=== PATIENT | male | born 1970 | race Caucasian/White ===

== ENCOUNTER 2023-12-19 16:43 | Outpatient (REF) | payer OTHER, SELFPAY ==
[2023-12-19 16:03] LABS: HCT 41.9 % (40.0-50.0); HGB 13.5 g/dL (13.5-17.5); MCH 29.2 pg (27.0-33.0); MCHC 32.2 % (32.0-36.0); MCV 91 fL (80-95); Platelet Count 235 10^3/uL (130-400); RBC 4.63 10^6/uL (4.36-5.78); RDW 14.3 % (11.8-14.1); RDW-SD 47.1 fL; WBC 9.04 10^3/uL (4.4-10.8)
[2023-12-19 16:49] LABS: ALT 24 U/L (16-63); AST 11 U/L (15-37); Albumin 3.6 g/dL (3.4-5.0); Anion Gap 10.2 mmol/L (3-11); BUN 25 mg/dL (7-18); Bilirubin, Total 0.5 mg/dL (0.2-1.0); CO2 26.8 mmol/L (21.0-32.0); Calcium 8.8 mg/dL (8.5-10.1); Calculated LDL 50 mg/dL (<100); Chloride 105 mmol/L (98-107); Cholesterol 114 mg/dL (<200); Glucose 105 mg/dL (74-106); HDL Cholesterol 53 mg/dL (40-60); Potassium 4.7 mmol/L (3.5-5.1); Sodium 142 mmol/L (136-145); Total Protein 7.4 g/dL (6.4-8.2); Triglyceride 59 mg/dL (<150)
[2023-12-19 17:15] LABS: Alkaline Phosphatase 65 U/L (46-116)
[2023-12-19 17:21] LABS: Hemoglobin A1C 6.6 % (<5.7)
[2023-12-19 23:12] LABS: PSA, Screening 0.3 ng/mL (<=3.5)
== END 2023-12-19 16:44 | disposition home or self-care (01) ==
LOC: NCHCN 16:43
PROVIDERS: Visit Provider Physician Assistant
DX: I10 Essential (primary) hypertension (principal); Z13.1 Encounter for screening for diabetes mellitus; Z12.5 Encounter for screening for malignant neoplasm of prostate
CPT/HCPCS: 80053; 80061; 84153; 85027; 83036

== ENCOUNTER 2024-01-13 18:03 | Outpatient (REF) | payer OTHER, SELFPAY | END 2024-01-13 18:04 | disposition home or self-care (01) | LOC: LBN 18:03 | PROVIDERS: Visit Provider Physician Assistant | DX: L02.212 Cutaneous abscess of back [any part, except buttock and flank] (principal) | CPT/HCPCS: 87070; 87205 ==

== ENCOUNTER 2024-06-07 21:27 | Emergency (ER) | payer OTHER, SELFPAY ==
[2024-06-07 21:28] VITALS: BP 125/58; PULSE 92; RESP 16; TEMP 36.6; O2SAT 98
[2024-06-07] MEDS: Lidocaine 2% Pres-Free W/EPI 1/200,000 20 ML VIAL (22:34)
[2024-06-07] MEDS: Doxycycline Hyclate 100 MG CAP PO (22:34)
--- NOTE | 2024-06-07 22:35 | ED.GENADUL_ITS ---
Discharge Plan Disposition Patient Disposition: Home Condition: Good Discharge Details Clinical Impression: Abscess ED Provider: Deepthi Hunt Home Meds and New Rx's Prescriptions: New doxycycline hyclate 100 mg capsule 100 mg PO BID Qty: 13 0RF No Action Eliquis 5 mg tablet 5 mg PO BID lisinopril 10 mg tablet 10 mg PO DAILY metoprolol tartrate 100 mg tablet 100 mg PO DAILY metoprolol tartrate 50 mg tablet 50 mg PO DAILY Mounjaro 5 mg/0.5 mL pen injector 5 mg subcut QWEEK Discharge Instructions Instructions: Abscess Incision and Drainage ED Additional Instructions: Please call your primary care provider first thing in the morning to schedule follow-up appointment in the next 2 or 3 days to have the drain removed. You may do daily dressing changes, applying a large bandage after a warm compress for 10 to 15 minutes. Wash daily with antibacterial soap and water. Use doxycycline for the full 7 days as prescribed. Note that this may cause you a photosensitivity rash, avoid contact with the sun. Wear long sleeves and SPF 50 if you outside. Return to emergency care if you develop any signs of worsening infection such as increasing pain, fever/chills, general malaise, or if you are very worried and need to be rechecked again immediately HPI General Date/Time Provider Initiated Documentation: 06/07/24 21:35 . HPI Narrative: Alhaji is a 54 year old male who presents to the ED today for evaluation of painf ul cyst to his back near his R scapula. He reports he has had a cyst there for a while and it hasn't given him any trouble but approx 1 week ago he developed pain, swelling, and redness to the area. He felt briefly feverish, but no recorded fever. Denies general malaise, n/v, change in PO intake. He has had infected epidermoid cysts previously that were treated with I+D and eventually removed. No known history of immunocompromise, recent abx use within the last 3 months, or antibiotic resistant infection. Physical exam remarkable for 3 cm diameter erythematous fluctuant mass with surrounding redness consistent with cellulitis. Tender to palpation. Pt is overall well appearing. History and presentation consistent with infected epidermoid cyst with surrounding cellulitis. No red flags concerning for serious systemic illness requiring diagnostic imaging or labs. I+D performed after local infiltration with 10 cc 2% lido with epi. Area was extensively cleansed with ChloraPrep. A 1 cm incision was made using a #11 scalpel. Large amount of purulent fluid expressed. Abscess was irrigated with 10 cc normal saline. 1/2 inch gauze packing applied. Nonstick dressing applied. Will treat with doxycycline, first dose given in ED. Reviewed discharge instructions with patient, including wound care, red flags indicating need for return to emergency care, use of doxycycline, and follow-up with PCP for removal of gauze packing. Advised patient that this will likely need to be removed to prevent recurrence. Related Data Home Medications ?Medication ?Instructions ?Recorded ?Confirmed apixaban 5 mg tablet (Eliquis) 5 mg PO BID 06/07/24 06/07/24 doxycycline hyclate 100 mg capsule 100 mg PO BID #13 caps 06/07/24 lisinopril 10 mg tablet 10 mg PO DAILY 06/07/24 06/07/24 metoprolol tartrate 100 mg tablet 100 mg PO DAILY 06/07/24 06/07/24 metoprolol tartrate 50 mg tablet 50 mg PO DAILY 06/07/24 06/07/24 tirzepatide 5 mg/0.5 mL 5 mg subcut QWEEK 06/07/24 06/07/24 subcutaneous pen injector (Karmen) Previous Rx's ?Medication ?Instructions ?Recorded doxycycline hyclate 100 mg capsule 100 mg PO BID #13 caps 06/07/24 Allergies Allergy/AdvReac Type Severity Reaction Status Date / Time No Known Allergies Allergy Unverified 06/07/24 21:35 General Stated Complaint: RashLesion SYD: 3 Review of Systems Narrative: see HPI Exam Const General: cooperative, healthy appearing, comfortable and no acute distress Nutritional Appearance: obese Orientation: alert and oriented x3 Resp Effort & Inspection: normal respiratory effort and able to speak in complete sentences Skin Lesions: other (3 cm diameter abscess just inferior to R scapula) Course Vital Signs Vital signs: Vital Signs Temperature 36.6 C 06/07/24 21:28 Pulse 92 H 06/07/24 21:28 Respiratory Rate 16 06/07/24 21:28 Blood Pressure 125/58 L 06/07/24 21:28 Pulse Oximetry 98 06/07/24 21:28 Temperature 36.6 C 06/07/24 21:28 Temperature Source Temporal Artery Scan 06/07/24 21:28 Pulse 92 H 06/07/24 21:28 Respiratory Rate 16 06/07/24 21:28 Respiratory Effort Normal 06/07/24 21:33 Blood Pressure 125/58 L 06/07/24 21:28 Blood Pressure Position Sitting 06/07/24 21:28 Pulse Oximetry 98 06/07/24 21:28 Oxygen Delivery Method Room Air 06/07/24 21:28 Oxygen Flow Rate 0 06/07/24 21:28 Pain Level 0 06/07/24 22:34 Procedures Abscess I/D Site: Back Side (if applicable): Right Local Anesthetic: Lidocaine 2% and With Epi Amount of anesthesia used (mL): 10 Technique: Incised with #11 Blade Irrigation: Yes Packing used?: Plain Medical Decision Making Quality:SDOH Health Related Social Needs: No Data to Display PFSH All Active Problems (Updated 06/07/24 @ 22:17 by Deepthi Beasley) Abscess (Acute) Social History Smoking risk assessment performed?: No
--- OUTSIDE RECORDS SUMMARY | 2024-06-07 22:50 | XMS_ITS | Clinical Summary ---
Author Organization [facility] Address [facility] [place] [address] Care Team Providers Care Director Phone Name Role Phone Unknown Primary Care Provider Unavailabl e Social History Tobacco Use Types Packs/Day Years Used Date Smoking Tobacco: Never Assessed Sex and Gender Information Value Date Recorded Sex Assigned at Not on file Gender Identity Not on file Sexual Orientation Not on file Plan of Treatment Health Maintenance Due Date Last Done Comments CT Colonography 1970 Colonoscopy 1970 Colorectal Cancer Screening 1970 FIT DNA 1970 FIT 1970 Sigmoidoscopy (10 year) with FIT yearly 1970 Sigmoidoscopy 1970 HIV screen 1988 Hepatitis C Screening 1988 Lipid Screening 1988 Hepatitis B vaccine (0-59 yrs) (1) 1989 Tetanus/Diphtheria/Pertussis Vaccines (1 - Tdap) 06/04 Zoster vaccine (1 of 2) 2020 Covid-19 Vaccine (1 - 2022-24 season) 2024 Influenza (Flu) vaccine (1 o f 1 - Influenza standard series) 05/03/2024 Care Teams Director Phone Relationship Specialty Start Date End Date Unknown None PCP - General 05/03/23
--- OUTSIDE RECORDS SUMMARY | 2024-06-07 22:50 | XMS_ITS | Encounter Summary ---
[place] [address] Care Team Providers Care Buzzle Buffer Name Role Phone Unknown Primary Care Provider Unavailabl e Reason for Referral * Diagnostic Test (Routine) - Closed Specialty Diagnoses / Procedures Referred By Contac t Referred To Contact Cardiology Diagnoses Atrial fibrillation, unspecified type Procedures Mobile Echo Blake Little PA [address] [place] [address] [facility] [place] [address] Referral ID Status Reason Start Date Expiration Date V isits Requested Visits Authorized [id number] Closed Specialty Service Requested 02/07/2024 02/06/2025 1 1 Reason for Visit * Diagnostic Test (Routine) - Closed Specialty Diagnoses / Procedures Referred By Contac t Referred To Contact Cardiology Diagnoses Atrial fibrillation, unspecified type Procedures Mobile Blake Hsieh PA [address] [place] [address] [facility] [place] [address] Referral ID Status Reason Start Date Expiration Date V isits Requested Visits Authorized [id number] Closed Specialty Service Requested 02/07/2024 02/06/2025 1 1 Encounter Details Date Type Department Care Team (Latest Contact Info) Description 02/07/2024 2:55 PM EDT - 02/07/2024 11:59 PM EDT Hospital Encounter [place] [address] Blake Little PA [address] [place] [address] Atrial fibrillation, unspecified type Discharge Disposition: Home Social History Tobacco Use Types Packs/Day Years Used Date Smoking Tobacco: Never Assessed Sex and Gender Information Value Date Recorded Sex Assigned at Not on file Gender Identity Not on file Sexual Orientation Not on file documented as of this encounter Plan of Treatment Not on file documented as of this encounter Procedures Procedure Name Priority Date/Time Associated Diagnosis Comments ECHO COMPLETE Routine 02/07/2024 2:56 PM EDT Atrial fibrillation, unspecified type documented in this encounter Results * ECHO COMPLETE (02/07/2024 2:56 PM EDT) Anatomical Region Laterality Modality Other 02/07/2024 11:1 3 AM EDT Narrative 02/07/2024 4:44 PM EDT 1 [place] [address] ? Echocardiogram Report Name: SUKH WILSON I ? Study Date: 02/07/2024 11:13 AMBP: 150/90 mmHg ? Patient Location: 4A : 1970 ? Height: 170 cm ? Account: [id number] Age: 53 yrs ? Weight: 232 kg Gender: Male ?BSA: 3.0 m2 Ordering Physician: BLAKE LITTLE Referring Physician: BLAKE LITTLE Performed By: José Miguel Lyles RDCS Reason For Study: Unspecified atrial fibrillation Exam Location: [facility]. Interpretation Summary Technically challenging study due to limited acoustic windows. Echocontrast utilized to enhance LV endocardial definition. Normal left ventricle size and systolic function. LV ejection fraction 56%. Normal LV wall motion. Right ventricle was not well visualized. No hemodynamically significant valvular abnormalities; although assessment was limited. No pericardial effusion. No comparison study is available. Procedure Complete-[id number]. Suboptimal quality. This study is limited because of body habitus. The rhythm is atrial fibrillation. Left Ventricle The left ventricle is not well visualized. Global left ventricular systolic function is normal. The left ventricular ejection fraction is 56% by Chicas's biplane. Unable to obtain global longitudinal strain due to suboptimal tracking and/or image quality. There are no segmental wall motion abnormalities. Right Ventricle The right ventricle is not well visualized. Left Atrium The left atrium is normal. No abnormality of the interatrial septum is identified. Right Atrium The right atrium is not well visualized. Aortic Valve The aortic valve is not well visualized. There is no aortic stenosis. There is no aortic regurgitation. Mitral Valve The mitral valve is not well visualized. There is no mitral stenosis. There is trace mitral regurgitation. Tricuspid Valve The tricuspid valve is not well visualized. There is trace tricuspid regurgitation. Pulmonic Valve The pulmonic valve is not well visualized. There is no pulmonic valve regurgitation. Great Arteries The aortic root is of normal size. No abnormalities are identified. Ascending aorta is normal in size. Venous Inferior vena cava is normal in size. Inferior vena cava collapse greater than 50% with respiration. Pericardium/Pleural The pericardium appears normal. A pericardial fat pad is present. Hemodynamics The peak right ventricular systolic pressure is 23.7 mmHg . The estimated right atrial pressure is 3mmHg. Left ventricular diastolic function is normal. Ejection Fraction ?2D Measurements ? Volumes LV Biplane EF: 56.1 % ? Ao root diam: 2.9 cm ? LA Volume Index: ?Ao root diam index: 0.97 ?asc Aorta Diam: 3.5 cm ? 29.8 ml/m2 ?LVOT diam: 2.0 cm ?EDV Biplane: 60.5 ml ? EDV BP Indexed: ? 20.1 ml/m2 ? ESV Biplane: 26.5 ml ? ESV BP Indexed: 8.8 ml/m2 ? SV(LVOT): 56.9 ml ? LV Stroke Volume: 56.9 ml ? SI(LVOT): 18.9 ml/m2 Doppler LV V1 VTI: 17.6 cm LVOT max Velocity: 91.0 cm/sec MV E max phi: 110.0 cm/sec MV dec time: 0.23 sec Lat Peak E' Phi: 18.6 cm/sec E/ e' (lat): 5.9 Med Peak E' Phi: 12.6 cm/sec E/e' (med): 8.7 E/e' Average: 7.3 TR max phi: 227.6 cm/sec RVSP(TR): 23.7 mmHg I ?WMSI = 1.00 ? % Normal = 100 ?Segments ??Size X - Cannot ?2 - ?4 - ?1-2 ? small Interpret ?1 - Normal ?? Hypokinetic 3 - Akinetic Dyskinetic ?? 3-5 ? moderate 5 - ? 6-14 ?large Aneurysmal ?15-16 ?? diffuse Procedure Note Gustabo Yadav MD - 02/07/2024 1 [place] [address] Echocardiogram Report Name: SUKH WILSON I Study Date: 02/07/2024 11:13 AMBP:150/90 mmHg Patient Location: [facility]: 1970 Height: 170 cmAccount: [id number] Age: 53 yrs Weight: 232 kg Gender: Male BSA: 3.0 m2 Ordering Physician: BLAKE LITTLE Referring Physician: BLAKE LITTLE Performed By: José Miguel Lyles RDCS Reason For Study: Unspecified atrial fibrillation Exam Location: [facility]. Interpretation Summary Technically challenging study due to limited acoustic windows.Echocontrast utilized to enhance LV endocardial definition. Normal left ventricle size and systolic function. LV ejection qpuvaazh90%. Normal LV wall motion. Right ventricle was not well visualized. No hemodynamically significant valvular abnormalities; although assessmentwas limited. No pericardial effusion. No comparison study is available. Procedure Complete-[id number]. Suboptimal quality. This study is limited because of bodyhabitus. The rhythm is atrial fibrillation. Left Ventricle The left ventricle is not well visualized. Global left ventricularsystolic function is normal. The left ventricular ejection fraction is 56% bySimpson's biplane. Unable to obtain global longitudinal strain due to suboptimaltracking and/or image quality. There are no segmental wall motion abnormalities. Right Ventricle The right ventricle is not well visualized. Left Atrium The left atrium is normal. No abnormality of the interatrial septum isidentified. Right Atrium The right atrium is not well visualized. Aortic Valve The aortic valve is not well visualized. There is no aortic stenosis.There is no aortic regurgitation. Mitral Valve The mitral valve is not well visualized. There is no mitral stenosis.There is trace mitral regurgitation. Tricuspid Valve The tricuspid valve is not well visualized. There is trace tricuspid regurgitation. Pulmonic Valve The pulmonic valve is not well visualized. There is no pulmonic valve regurgitation. Great Arteries The aortic root is of normal size. No abnormalities are identified.Ascending aorta is normal in size. Venous Inferior vena cava is normal in size. Inferior vena cava collapse greaterthan 50% with respiration. Pericardium/Pleural The pericardium appears normal. A pericardial fat pad is present. Hemodynamics The peak right ventricular systolic pressure is 23.7 mmHg . The estimatedright atrial pressure is 3mmHg. Left ventricular diastolic function is normal. Ejection Fraction 2D Measurements Volumes LV Biplane EF: 56.1 % Ao root diam: 2.9 cm LA VolumeIndex: Ao root diam index: 0.97 asc Aorta Diam: 3.5 cm 29.8 ml/m2 LVOT diam: 2.0 cm EDV Biplane: 60.5ml EDV BP Indexed: 20.1 ml/m2 ESV Biplane: 26.5ml ESV BP Indexed:8.8 ml/m2 SV(LVOT): 56.9ml LV Stroke Volume:56.9 ml SI(LVOT): 18.9ml/m2 Doppler LV V1 VTI: 17.6 cm LVOT max Velocity: 91.0 cm/sec MV E max phi: 110.0 cm/sec MV dec time: 0.23 sec Lat Peak E' Phi: 18.6 cm/sec E/ e' (lat): 5.9 Med Peak E' Phi: 12.6 cm/sec E/e' (med): 8.7 E/e' Average: 7.3 TR max phi: 227.6 cm/sec RVSP(TR): 23.7 mmHg I WMSI = 1.00 % Normal = 100 SegmentsSize X - Cannot 2 - 4 - 1-2small Interpret 1 - Normal Hypokinetic 3 - Akinetic Dyskinetic 3-5moderate 5 - 6-14large Aneurysmal 15-16diffuse Blake VILLARREAL ECHO ORDERABLES documented in this encounter Visit Diagnoses Diagnosis Atrial fibrillation, unspecified type documented in this encounter Care Teams Buzzle Buffer Relationship Specialty Start Date End Date Unknown None PCP - General 05/03/23 documented as of this encounter
--- OUTSIDE RECORDS SUMMARY | 2024-06-07 22:50 | XMS_ITS | Clinical Summary ---
Author Organization [facility] Address [address] [place] [address] Care Team Providers Care Nail Tech Name Role Phone Unavailable Primary Care Provider Unavailabl e Social History Tobacco Use Types Packs/Day Years Used Date Smoking Tobacco: Never Assessed Interpersonal Safety Answer Date Record ed Physically Hurt Never 11/05/2020 Verbally Threaten Not on file 11/05/2020 Sex and Gender Information Value Date Recorded Sex Assigned at Not on file Gender Identity Not on file Sexual Orientation Not on file Plan of Treatment Health Maintenance Due Date Last Done Comments Hepatitis C Screen 1970 Hepatitis B Vaccine (1 of 3 - 19+ 3-dose series) 06/04 COVID-19 Vaccine (2022-24 season) 2023
--- OUTSIDE RECORDS SUMMARY | 2024-06-07 22:50 | XMS_ITS | Continuity of Care Document ---
Author Organization [facility] Address [address] [place] [address] Care Team Providers Care Manager Project Name Role Phone [facility] Primary [facility] Physician Encounter [facility] Date(s): 12/19/23 - 12/19/23 [facility] [address] [place] [address] Allergies, Adverse Reactions, Alerts Substance Reaction Severity Status penicillins Unknown Active Assessment and Plan Future Appointments Immunizations Given and Recorded Vaccine Date Status Refusal Reason SARS-CoV-2 (COVID-19) mRNA-1273 vaccine 12/27/20 R ecorded SARS-CoV-2 (COVID-19) mRNA-1273 vaccine 11/28/20 R ecorded tetanus/diphth/pertuss (Tdap) adult/adol 01/01/08 Recorded Medications Metoprolol Succinate ER 25 mg oral tablet, extended release See Instructions, Take 1 tablet by mouth once daily, # 90 tab, 0 Refill(s), Pharmacy: [id number], 177, cm, 02/15/23 12:50:00 EDT, Height/Length Dosing, 217, kg, 02/15/23 12:50:00 EDT, Weight Dosing Start Date: 10/09/23 Status: Ordered [facility] [place] Prescription Magnesium, Pot[place]iu, Multi Vitamin, 0 Refill(s) Start Date: 02/15/23 Status: Ordered valACYclovir 1 g oral tablet 2 g = 2 tab, Oral, every 12 hr, As needed for cold sores drink plenty of fluids, # 8 tab, 1 Refill(s), Pharmacy: [id number], 180, cm, 03/13/22 22:44:00 EDT, Height/Length Dosing, 213.2, kg, 03/13/22 22:44:00 EDT, Weight Dosing Start Date: 11/23/22 Stop Date: 11/24/22 Status: Ordered Problem List Condition Confirmation Course Effective Dates Status H ealth Status Informant Arthropathy Confirmed Active Chronic fatigue syndrome Confirmed Active Disorder of spinal region Confirmed Active Herpes simplex Confirmed Active Hypertensive disorder Confirmed Active Knee pain Confirmed Active Loan foreclosure status Confirmed Active Palpitations Confirmed Active Sciatica Confirmed Active Screening for cardiovascular system disease Confirmed Active Severe obesity Confirmed Active Supraventricular tachycardia Confirmed Active Procedures Procedure Date Related Diagnosis Body Site Status Appendectomy 09/01/75 Completed Tonsillectomy 09/01/73 Completed Social History Social History Type Response Tobacco Never tobacco user T obacco Use:. Sex Male Patient Care team information Care Team Personnel Name: Fredy Cherry MD Position: Physician Member Role: Informed Provider Address: Address: [address] [place] [address] [place] Name: Miguel [facility] Position: No Access Member Role: Primary Care Physician Address: Address: [id number] [place] [address] Care Team Related Persons Name: ROLAN WILSON Address: Home Name: ROLAN WILSON Address: Alternate [address] [place] [id number] Address: Home [address] [facility] [id number] Address: [address] [place], [place] [id number]
--- OUTSIDE RECORDS SUMMARY | 2024-06-07 22:50 | XMS_ITS | Continuity of Care Document ---
Author Organization [facility] Address [address] [place] [address] Care Team Providers Care Fitter Machinist Name Role Phone Jo Ann Fredy Marie Primary Care Physician [facility] Date(s): 02/15/23 - 02/15/[address] [address] Encounter Diagnosis Neck pain(Discharge Diagnosis) - 02/15/23 Muscle spasm(Discharge Diagnosis) - 02/15/23 Discharge Disposition: Home or Self Care Attending Physician: Sonia León MD Admitting Physician: Sonia León MD Allergies, Adverse Reactions, Alerts Substance Reaction Severity Status penicillins Unknown Active Assessment and Plan Extracted from: Title:Clinical Document Author:Shila Sotomayor te:02/15/23 Diagnosis: 1. Neck pain Comment: Diagnosis: 2. Muscle spasm Comment: Diagnosis: Neck pain Comment: Functional Status 02/15/23 Family Member Travel History No recent t ravel Recent Travel History No recent travel Other exposure to Infectious Disease Non e Immunizations Given and Recorded Vaccine Date Status Refusal Reason SARS-CoV-2 (COVID-19) mRNA-1273 vaccine 12/27/20 R ecorded SARS-CoV-2 (COVID-19) mRNA-1273 vaccine 11/28/20 R ecorded tetanus/diphth/pertuss (Tdap) adult/adol 01/01/08 Recorded Medications cyclobenzaprine 10 mg oral tablet 10 mg = 1 tab, Oral, TID, PRN as needed for spasm, X 10 days, # 30 tab, 0 Refill(s), 02/25/23 15:15:00 EDT, Pharmacy: [id number], 177, cm, 02/15/23 12:50:00 EDT, Height/Length Dosing, 217,kg, 02/15/23 12:50:00 EDT, Weight Dosing Start Date: 02/15/23 Stop Date: 02/25/23 Status: Ordered Metoprolol Succinate ER 100 mg oral tablet, extended release 1 tab, Oral, Daily, # 90 tab, 0 Refill(s), Pharmacy: [id number], 180, cm, 03/13/22 22:44:00 EDT, Height/Length Dosing, 213.2, kg, 03/13/22 22:44:00 EDT, Weight Dosing Start Date: 01/15/23 Status: [place] [facility] [place] Magnesium, Potassiu, Multi Vitamin, 0 Refill(s) Start Date: 02/15/23 Status: Ordered oxyCODONE 5 mg oral capsule 5 mg = 1 cap, Oral, every 6 hr, PRN as needed for pain, X 5 days, # 12 cap, 0 Refill(s), 02/20/23 15:15:00 EDT, Pharmacy: [id number], 177, cm, 02/15/23 12:50:00 EDT, Height/Length Dosing, 217, kg, 02/15/23 12:50:00 EDT, Weight Dosing Start Date: 02/15/23 Stop Date: 02/20/23 Status: Ordered valACYclovir 1 g oral tablet 2 g = 2 tab, Oral, every 12 hr, As needed for cold sores drink plenty of fluids, # 8 tab, 1 Refill(s), Pharmacy: [id number], 180, cm, 03/13/22 22:44:00 [...] Status Appendectomy 09/01/75 Completed Tonsillectomy 09/01/73 Completed Vital Signs Most recent to oldest [Reference Range]: 1 2 Temperature Temporal Artery [36-38 Deg C ] 36.7 Deg C (02/15/23 12:30 PM) Peripheral Pulse Rate [60-100 bpm] 69 bp m (02/15/23 3:18 PM) 80 bpm (02/15/23 12:30 PM) Respiratory Rate [12-24 br/min] 16 br/mi n (02/15/23 3:18 PM) 18 br/min (02/15/23 12:30 PM) Blood Pressure [90-140/60-90 mmHg] 170/9 8mmHg *HI* (02/15/23 3:18 PM) 163/79mmHg *HI* (02/15/23 12:30 PM) Weight Dosing 217.00 kg (02/15/23 12:50 PM) Weight Estimated 217.00 kg (02/15/23 12:30 PM) Height/Length Dosing 177.000 cm (02/15/23 12:50 PM) Height/Length Estimated 177.000 cm (02/15/23 12:30 PM) Social History Social History Type Response Tobacco Never tobacco user T obacco Use:. Sex Male Hospital Discharge Instructions Patient Education 02/15/2023 14:17:48 Musculoskeletal Pain Musculoskeletal Pain Musculoskeletal pain refers to aches and pains in your bones, joints, muscles, and the tissues thatsurround them. This pain can occur in any part of the body. It can last for a short time (acute) ora long time (chronic). A physical exam, lab tests, and imaging studies may be done to find the cause of your musculoskeletal pain. Follow these instructions at home: Lifestyle ??? Try to control or lower your stress levels. Stress increases muscle tension and can worsen musculoskeletal pain. It is important to recognize when you are anxious or stressed and learn ways to manage it. This may include: ??? Meditation or yoga. ??? Cognitive or behavioral therapy. ??? Acupuncture or massage therapy. ??? You may continue all activities unless the activities cause more pain. When the pain gets better, slowly resume your normal activities. Gradually increase the intensity and duration of your activities or exercise. Managing pain, stiffness, and swelling ??? Treatment may include medicines for pain and inflammation that are taken by mouth or applied tothe skin. Take juvo-eou-zbirboh and prescription medicines only as told by your health care provider. ??? When your pain is severe, bed rest may be helpful. Lie or sit in any position that is comfortable, but get out of bed and walk around at least every couple of hours. ??? If directed, apply heat to the affected area as often as told by your health care provider. Usethe heat source that your health care provider recommends, such as a moist heat pack or a heating pad. ??? Place a towel between your skin and the heat source. ??? Leave the heat on for 20???30 minutes. ??? Remove the heat if your skin turns bright red. This is especially important if you are unable to feel pain, heat, or cold. You may have a greater risk of getting burned. ??? If directed, put ice on the painful area. To do this: ??? Put ice in a plastic bag. ??? Place a towel between your skin and the bag. ??? Leave the ice on for 20 minutes, 2???3 times a day. ??? Remove the ice if your skin turns bright red. This is very important. If you cannot feel pain, heat, or cold, you have a greater risk of damage to the area. General instructions ??? Your health care provider may recommend that you see a physical therapist. This person can helpyou come up with a safe exercise program. ??? If told by your health care provider, do physical therapy exercises to improve movement and strength in the affected area. ??? Keep all follow-up visits. This is important. This includes any physical therapy visits. Contact a health care provider if: ??? Your pain gets worse. ??? Medicines do not help ease your pain. ??? You cannot use the part of your body that hurts, such as your arm, leg, or neck. ??? You have trouble sleeping. ??? You have trouble doing your normal activities. Get help right away if: ??? You have a new injury and your pain is worse or different. ??? You feel numb or you have tingling in the painful area. Summary ??? Musculoskeletal pain refers to aches and pains in your bones, joints, muscles, and the tissues that surround them. ??? This pain can occur in any part of the body. ??? Your health care provider may recommend that you see a physical therapist. This person can helpyou come up with a safe exercise program. Do any exercises as told by your physical therapist. ??? Lower your stress level. Stress can worsen musculoskeletal pain. Ways to lower stress may include meditation, yoga, cognitive or behavioral therapy, acupuncture, and massage therapy. This information is not intended to replace advice given to you by your health care provider. Make sure you discuss any questions you have with your health care provider. Document Revised: 12/22/2020 Document Reviewed: 11/30/2020 Elsevier Patient Education ?? 2021 [employer]. Follow Up Care 02/15/2023 12:30:22 With:Follow up with primary care provider Address: When:1 to 2 weeks Physician Emergency department Note * Deepthi Cavazos MD: PERFORM Event Display: ED Note Physician Authored Date: [id number] SUKH WILSON I :1970 Age:52 years Sex:Male Visit Date:02/15/2023 Primary Care Physician: Fredy Cherry MD Basic Information Time Seen: Deepthi Cavazos MD / 02/15/2023 14:54 Chief Complaint I had a stiff neck last weekend and it went into my shoulder. I put some oils on it and it got better. Yesterday I started to have more pain in my shoulder, and my neck and i can't turn . PT statesleft arm pain, and pirckly. No injury. No CP History Of Present Illness: Patient reports last weekend he had a??stiff neck??and has now moved into his left shoulder area. ??He has put some peppermint oil??and lotions on the area??was also tried some Tylenol and??because of his bypass surgery??he is not supposed to take NSAIDs he did try some??however continued pain paindoes go down his left arm at times with occasionally tingling.?No numbness no weakness. ??Area wakes him up at nighttime for pain.?No injury no trauma he is otherwise healthy no risk of cancer.?? Patient's a year ago. ??Patient is here with his son??who is 16 years old. Review of Systems: see hpi for ros Physical Exam Vitals & Measurements T:??36.7?C ??(Temporal Artery)?? HR:??69??(Peripheral)?? RR:??16?? BP:??170/98?? SpO2:??95%?? HT:??177.000??cm?? WT:??217.00??kg??(Estimated)?? Pain Score:??6?? O2 Therapy:??Room air?? General: Alert and oriented, well nourished,?No??acute distress Eye: PER,?Normal??conjunctiva, No scleral icterus HENT: Normocephalic?Normal?? hearing?? Neck no C-spine tenderness positive muscle??tenderness specially left??cervical strap muscles??and??rhomboids on the left??as well as posterior rotator cuff area Respiratory:??Respiration??no distress??no increased work of breathing Heart:??Capillary refill less than 2 seconds??no??edema Chest: wall excursion wnl no abnormal movements no obvious deformities Musculoskeletal:?Normal?? range of motion and strength??forearms??for name plate stamper??interossei??biceps triceps??and shoulder abduction adduction??sensation light touch intact,??capillary refill less than 2 seconds no??tenderness,?No??swelling Skin: Skin is warm, dry and pink,?No??rashes,?No??lesions Neurologic: Awake, alert and oriented X4 Psychiatric: Cooperative, appropriate mood and affect Medical Decision Making: For MDM please see under assessment and plan Procedure No Qualifying Data Assessment/Plan 1.??Neck pain??M54.2 I think this is likely musculoskeletal patient has slight??torticollis??as??position of comfort is??neck bent to the right??showed signs of massages he can do??muscle releases patient will try Flexeril 10 mg 3 times a day??and oxycodone 5 mg 1 to 2 capsules every 6 hours as needed. ??Patient will also maximize Tylenol. ??Physical therapy order is written for patient to use if he decides he wants to. Ordered: cyclobenzaprine 10 mg oral tablet, 10 mg = 1 tab, Oral, TID, PRN as needed for spasm, X 10 days, # 30 tab, 0 Refill(s), 02/25/23 15:15:00 EDT, Pharmacy: [id number], 177, cm, 02/15/23 12:50:00 EDT, Height/Length Dosing, 217, kg, 02/15/23 12:50:00 EDT, Weight Dosing oxyCODONE 5 mg oral capsule, 5 mg = 1 cap, Oral, every 6 hr, PRN as needed for pain, X 5 days, # 12cap, 0 Refill(s), 02/20/23 15:15:00 EDT, Pharmacy: [id number], 177, cm, 02/15/23 12:50:00 EDT, Height/Length Dosing, 217, kg, 02/15/23 12:50:00 EDT, Weight Dosing Discharge Patient, 02/15/23 15:15:00 EDT, Home Independently, Constant Indicator ?? 2.??Muscle spasm??M62.838 Patient seems to have multiple muscle spasms of??neck region and rhomboid area.?? See above. Ordered: cyclobenzaprine 10 mg oral tablet, 10 mg = 1 tab, Oral, TID, PRN as needed for spasm, X 10 days, # 30 tab, 0 Refill(s), 02/25/23 15:15:00 EDT, Pharmacy: [id number], 177, cm, 02/15/23 12:50:00 EDT, Height/Length Dosing, 217, kg, 02/15/23 12:50:00 EDT, Weight Dosing oxyCODONE 5 mg oral capsule, 5 mg = 1 cap, Oral, every 6 hr, PRN as needed for pain, X 5 days, # 12cap, 0 Refill(s), 02/20/23 15:15:00 EDT, Pharmacy: [id number], 177, cm, 02/15/23 12:50:00 EDT, Height/Length Dosing, 217, kg, 02/15/23 12:50:00 EDT, Weight Dosing Discharge Patient, 02/15/23 15:15:00 EDT, Home Independently, Constant Indicator ?? Patient Education Musculoskeletal Pain Follow Up With When Contact Information Follow up with primary care provider Within 1 to 2 weeks Additional Instructions: Medication Reconciliation New Prescription cyclobenzaprine (cyclobenzaprine 10 mg oral tablet)1 tab Oral (given by mouth) 3 times a day as needed as needed for spasm for 10 Days. Refills: 0. ?? oxyCODONE (oxyCODONE 5 mg oral capsule)1 Capsules Oral (given by mouth) every 6 hours as needed as needed for pain for 5 Days. Refills: 0. ?? Unchanged metoprolol (Metoprolol Succinate ER 100 mg oral tablet, extended release)1 tab Oral (given by mouth) every day. Refills: 0. ?? Other Prescription (Misc Prescription)Magnesium, Potassiu, Multi Vitamin. ?? valACYclovir (valACYclovir 1 g oral tablet)2 tab Oral (given by mouth) every 12 hours for 2 Doses. As needed for cold sores drink plenty of fluids. Refills: 1. Problem List/Past Medical History Ongoing Arthropathy Chronic fatigue syndrome Disorder of spinal region Herpes simplex Hypertensive disorder Knee pain Loan foreclosure status Palpitations Sciatica Screening for cardiovascular system disease Severe obesity Supraventricular tachycardia Historical Acute bronchitis Acute upper respiratory infection Adult health examination Disorder of conjunctiva Procedure/Surgical History ???Appendectomy (09/02/1975)???Tonsillectomy (09/02/1973) Allergies penicillins Social History Alcohol Never Electronic Cigarette/Vaping Electronic Cigarette Use: Never. Substance Use Never Tobacco Never tobacco user Tobacco Use:. Electronically Signed on 02/15/23 03:27 PM Deepthi Cavazos MD Emergency department Discharge instructions * Deepthi Cavazos MD: PERFORM Event Display: ED Discharge Information Authored Date: [id number] SUKH WILSON I :1970 Age:52 years Sex:Male Visit Date:02/15/2023 Primary Care Physician: Fredy Cherry MD Discharge Instructions We would like to thank you for allowing us to assist you with your healthcare needs. The following includes patient education materials and information regarding your injury/illness. Diagnosis from Today's Visit Neck pain Muscle spasm Discharge Vitals Temperature??(Temporal Artery) 98.1 ??F (36.7 ??C) Heart Rate??(Peripheral) 80 Respiratory Rate?? 18 Blood Pressure?? 163/79?? Height?? 69.69 in (177.000 cm) Weight??(Estimated) 478.48 lb (217.00 kg) Allergies penicillins What to Do Next Instructions from Your Care Team You may take up to??1000 mg??of Tylenol??(acetaminophen) every 6 hours as needed??for pain or discomfort for maximum 4000 mg in 24 hours or you may permanently hurt your liver.?? Flexeril (cyclobenzaprine) 10 mg 3 times a day??as needed for muscle relaxation. ??For pain uncontrolled??by Tylenol youmay try oxycodone 5 mg??1-2 tabs every 6 hours as needed. ??By heat to the area.?? You Need to Schedule the Following Appointments Follow Up with??Follow up with primary care provider When:??Within 1 to 2 weeks You were treated today on an emergency basis; it may be hamliton to contact your primary care provider to notify them of your visit today. You may have been referred to your regular doctor or a specialist, please follow up as instructed. If your condition worsens or you can't get in to see the doctor, contact the Emergency Department. Medications What How Much When Why Instructions Next Dose New cyclobenzaprine (cyclobenzaprine 10 mg oral tablet) 1 tab Oral (given by mouth) 3 times a day as needed for as needed for spasm Neck pain Muscle spasm Duration: 10 Days Pickup at [facility] New oxyCODONE (oxyCODONE 5 mg oral capsule) 1 Capsules Oral (given by mouth) Every 6 hours as needed for as needed for pain Neck pain Muscle spasm Duration: 5 Days Pickup at [facility] Unchanged metoprolol (Metoprolol Succinate ER 100 mg oral tablet, extended release) 1 tab Oral (given by mouth) Every day Unchanged Other Prescription ([facility]) Magnesium, Potassiu, Multi Vitamin Unchanged valACYclovir (valACYclovir 1 g oral tablet) 2 tab Oral (given by mouth) Every 12 hours Duration: 2 Doses As needed for cold sores drink plenty of fluids ?? Pharmacy Information [facility]: [address] [phone] Education Materials Musculoskeletal Pain Musculoskeletal pain refers to aches and pains in your bones, joints, muscles, and the tissues thatsurround them. This pain can occur in any part of the body. It can last for a short time (acute) ora long time (chronic). A physical exam, lab tests, and imaging studies may be done to find the cause of your musculoskeletal pain. Follow these instructions at home: Lifestyle ? Try to control or lower your stress levels. Stress increases muscle tension and can worsen musculoskeletal pain. It is important to recognize when you are anxious or stressed and learn ways to manageit. This may include: ? Meditation or yoga. ? Cognitive or behavioral therapy. ? Acupuncture or massage therapy. ? You may continue all activities unless the activities cause more pain. When the pain gets better, slowly resume your normal activities. Gradually increase the intensity and duration of your activities or exercise. Managing pain, stiffness, and swelling ? Treatment may include medicines for pain and inflammation that are taken by mouth or applied to theskin. Take fagd-jfc-eoypnpk and prescription medicines only as told by your health care provider. ? When your pain is severe, bed rest may be helpful. Lie or sit in any position that is comfortable, but get out of bed and walk around at least every couple of hours. ? If directed, apply heat to the affected area as often as told by your health care provider. Use theheat source that your health care provider recommends, such as a moist heat pack or a heating pad. ? Place a towel between your skin and the heat source. ? Leave the heat on for 20???30 minutes. ? Remove the heat if your skin turns bright red. This is especially important if you are unable to feel pain, heat, or cold. You may have a greater risk of getting burned. ? If directed, put ice on the painful area. To do this: ? Put ice in a plastic bag. ? Place a towel between your skin and the bag. ? Leave the ice on for 20 minutes, 2???3 times a day. ? Remove the ice if your skin turns bright red. This is very important. If you cannot feel pain, heat, or cold, you have a greater risk of damage to the area. General instructions ? Your health care provider may recommend that you see a physical therapist. This person can help youcome up with a safe exercise program. ? If told by your health care provider, do physical therapy exercises to improve movement and strength in the affected area. ? Keep all follow-up visits. This is important. This includes any physical therapy visits. Contact a health care provider if: ? Your pain gets worse. ? Medicines do not help ease your pain. ? You cannot use the part of your body that hurts, such as your arm, leg, or neck. ? You have trouble sleeping. ? You have trouble doing your normal activities. Get help right away if: ? You have a new injury and your pain is worse or different. ? You feel numb or you have tingling in the painful area. Summary ? Musculoskeletal pain refers to aches and pains in your bones, joints, muscles, and the tissues thatsurround them. ? This pain can occur in any part of the body. ? Your health care provider may recommend that you see a physical therapist. This person can help youcome up with a safe exercise program. Do any exercises as told by your physical therapist. ? Lower your stress level. Stress can worsen musculoskeletal pain. Ways to lower stress may include meditation, yoga, cognitive or behavioral therapy, acupuncture, and massage therapy. This information is not intended to replace advice given to you by your health care provider. Make sure you discuss any questions you have with your health care provider. Document Revised: 12/22/2020 Document Reviewed: 11/30/2020 Elsevier Patient Education ?? 2021 [employer] Patient/Inverform Machine Operator Signature Patient Name:SUKH WILSON I I have received this information and my questions have been answered. Patient/Inverform Machine Operator Name: Patient/Inverform Machine Operator Signature: Relationship to Patient: Witness Name/Signature: Date: Electronically Signed on: 02/15/2023 15:18 EDTSigned by:[facility] Emergency department Note * Shila Sotomayor: PERFORM Event Display: ED Notes Authored Date: [id number] Discharge summary * Shila Sotomayor: PERFORM Event Display: Discharge Note Authored Date: [id number] * Shila Sotomayor: PERFORM Event Display: Discharge Note Authored Date: [id number] Diagnosis: 1. Neck pain Comment: Diagnosis: 2. Muscle spasm Comment: Diagnosis: Neck pain Comment: Electronically Signed on 02/15/23 03:28 PM Shila Sotomayor Patient Care team information Care Team Personnel Name: Fredy Cherry MD Position: Physician Member Role: Informed Provider Address: Address: [address] [place] [id number] Name: An Forbes Position: Nurse Member Role: ED Nurse Name: Deepthi Cavazos MD Position: Physician Member Role: ED Physician Address: Address: [address] [place] [id number] [place] Care Team Related Persons Name: ROLAN WILSON
--- OUTSIDE RECORDS SUMMARY | 2024-06-07 22:50 | XMS_ITS | Encounter Summary ---
Author Organization [facility] Address [address] [place] [address] Care Team Providers Care Athletic Team Physician Name Role Phone Unavailable Primary Care Provider Unavailabl e Encounter Details Date Type Department Care Team (Late st Contact Info) Description 11/04/2020 Lab Requisition [facility]ology & Laboratory Medicine - [facility] [address] [place] [address] Outr Resulting Lab, Provider Social History Tobacco Use Types Packs/Day Years [...] Procedure Name Priority Date/Time Associated Diagnosis Comments ZZCOVID-19 TEST [facility] PCR Today 11/04/2020 9:23 EST COVID-19 TESTING Routine 11/04/2020 9:23 EST documented in this encounter Results * COVID-19 TEST [facility] PCR (11/04/2020 9:23 EST) Swab ENTIRE NASOPHARYNX / Unknown 11/04/2020 9:23 EST 11/04/2020 22:01 EST Provider Outr Resulting Lab MICROBIOLOGY - GENERAL ORDERABLES [facility] [address] [place] [address] * COVID-19 TESTING (11/04/2020 9:23 EST) COVID-19 rt-PCR Result Negative Negative 11/05/2020 16:51 EST [facility] Comment: This test has not been FDA cleared or approved. This test has been authorized by FDA under an EUA for use by authorized laboratories. This test has been authorized only for detection of nucleic acid from 2019-nCoV, not for any other viruses or pathogens. This test is only authorized for the duration of the declaration that circumstances exist justifying the authorization of emergency use of in vitro diagnostic tests for detection and/or diagnosis of 2019-nCoV under section 564(b)(1) of Act, 21 U.S.C ?? 360bbb-3(b) (1), unless the authorization is terminated or revoked sooner. Negative results do not preclude 2019-nCoV infection and should not be used as the sole basis for treatment or other patient management decisions. Negative results must be combined with clinical observations, patient history, and epidemiological information. This test was developed and its performance characteristics determined by [facility]. It has not been cleared or approved by the US Food and Drug Administration. FDA does not require this test to go through premarket FDA review. This test is used for clinical purposes. It should not be regarded as investigational or for research. This laboratory is certified under the Clinical Laboratory Improvement Amendments (CLIA) as qualified to perform high complexity clinical laboratory testing. This test is based on the CDC COVID-19 Emergency Use Authorization (EUA) assay, with minor modification as defined by the FDA Performed on the Jonglao 7 Flex RT-PCR System. Performing Lab [facility] 11/05/2020 16:51 EST [facility] Swab 11/04/2020 9:23 EST 11/04/2020 22:01 EST Provider Outr Resulting Lab MICROBIOLOGY - GENERAL ORDERABLES [facility] [address] [place] [address] documented in this encounter Visit Diagnoses Not on filedocumented in this encounter
--- OUTSIDE RECORDS SUMMARY | 2024-06-07 22:50 | XMS_ITS | Referral Summary ---
Author Organization [facility] Address [address] [place] [address] Care Team Providers Care Chemical Applicator Name Role Phone Unavailable Primary Care Provider [...] Orientation Not on file Plan of Treatment Not on file
--- OUTSIDE RECORDS SUMMARY | 2024-06-07 22:50 | XMS_ITS | Continuity of Care Document ---
Author Organization [facility] Address [address] [place] [address] Care Team Providers Care Cook Cashier Food Prep Name Role Phone Say Ashton Primary Care Physician Encounter [facility] Date(s): 02/07/24 - 02/07/[address] [address] Discharge Disposition: Home or Self Care Attending Physician: Say sAhton Admitting Physician: Say Ashton Referring Physician: Say Ashton Allergies, Adverse Reactions, Alerts Substance Reaction Severity [...] daily, # 90 tab, 0 Refill(s), Pharmacy: [id number], 177, cm, 02/15/23 12:50:00 EDT, Height/Length Dosing, 217, kg, 02/15/23 12:50:00 EDT, Weight Dosing Start Date: 10/09/23 Status: Ordered [facility] Prescription Magnesium, Potassiu, Multi Vitamin, 0 Refill(s) Start Date: 02/15/23 Status: Ordered valACYclovir 1 g oral tablet 2 g = 2 tab, Oral, every 12 hr, As needed for cold sores drink plenty of fluids, # 8 tab, 1 Refill(s), Pharmacy: [id number], 180, cm, 03/13/22 22:44:00 [...] Physician Member Role: Informed Provider Address: Address: [address] [place] [address] [place], [place] [address] Name: Miguel A [facility] Position: No Access Member Role: Primary Care Physician Address: Address: [address] [address] Care Team Related Persons Name: ROLAN WILSON Address: Alternate [address] [place] [phone] Address: Home [address] [place] [phone] Address: Mailing [address] [place] [phone] Name: ROLAN WILSON
--- OUTSIDE RECORDS SUMMARY | 2024-06-07 22:50 | XMS_ITS | Continuity of Care Document ---
Author Organization [facility] Address [address] [place] [address] Care Team Providers Care Associate Professor Physician Name Role Phone [facility] Date(s): 12/19/23 - 12/19/23 [facility] [address] [place] [address] Allergies, Adverse Reactions, Alerts Substance Reaction Severity [...] daily, # 90 tab, 0 Refill(s), Pharmacy: [id number], 177, cm, 02/15/23 12:50:00 EDT, Height/Length Dosing, 217, kg, 02/15/23 12:50:00 EDT, Weight Dosing Start Date: 10/09/23 Status: Ordered Misc Prescription Magnesium, Potassiu, Multi Vitamin, 0 Refill(s) Start Date: 02/15/23 Status: Ordered valACYclovir 1 g oral tablet 2 g = 2 tab, Oral, every 12 hr, As needed for cold sores drink plenty of fluids, # 8 tab, 1 Refill(s), Pharmacy: [id number], 180, cm, 03/13/22 22:44:00 [...] Member Role: Informed Provider Address: Address: [address] [place] [id number]- [place] Name: Miguel [facility] Position: No Access Member Role: Primary Care Physician Address: Address: [address] [address]- [place] Care Team Related Persons Name: ROLAN WILSON Address: Home Name: ROLAN WILSON Address: [address] [phone] Address: Home [address] [place] [phone] Address: Mailing [address] [place] [phone]
--- OUTSIDE RECORDS SUMMARY | 2024-06-07 22:50 | XMS_ITS | Encounter Summary ---
Author Organization [facility] Address [address] [place] [id number] Care Team Providers Care Architectural Design Professor Name Role Phone Unavailable Primary Care Provider Unavailabl e Encounter Details Date Type Department Care Team (Late st Contact Info) Description 12/19/2023 Lab Requisition [facility] Pathology & Laboratory Medicine - [facility] [address] [place] [address] Outr Resulting Lab, Provider Social History Tobacco [...] Procedure Name Priority Date/Time Associated Diagnosis Comments PSA TOTAL, DIAGNOSTIC Routine 12/19/2023 14:20 EDT documented in this encounter Results * PSA TOTAL, DIAGNOSTIC (12/19/2023 14:20 EDT) PSA 0.3 <=3.5 ng/mL 12/19/2023 23:07 EDT [facility] Blood VENOUS BLOOD / Unknown 12/19/2023 14:20 EDT 12/19/2023 22:30 EDT Narrative [facility] - 12/19/2023 23:07 EDT NOTE: Serum PSA concentration should not be interpreted as absolute evidence for the presence or absence of malignant disease. Assayed on Siemens ADVIA Centaur XPT using chemiluminescent technology.??Values obtained by using different assay methods cannot be used interchangeably. Provider Outr Resulting Lab CHEMISTRY & BLOOD GAS ORDERABLES [facility] [address] [place] [address] documented in this encounter Visit Diagnoses Not on filedocumented in this encounter
== END 2024-06-07 22:44 | disposition home or self-care (01) ==
LOC: ER 22:48
PROVIDERS: Emergency Provider Nurse Practitioner Family
DX: L02.212 Cutaneous abscess of back [any part, except buttock and flank] (principal)
CPT/HCPCS: 10061; J2004

== ENCOUNTER 2024-08-11 17:46 | Emergency (ER) | payer BC, SELFPAY ==
[2024-08-11 17:49] VITALS: BP 109/66; PULSE 94; RESP 15; TEMP 36.6; O2SAT 97
[2024-08-11 18:38] LABS: Abs Immature Grans 0.03 10^3/uL (0.0-0.06); Absolute Basophil Count 0.07 10^3/uL (0.0-0.2); Absolute Eosinophil Count 0.14 10^3/uL (0.0-0.7); Absolute Lymphocyte Count 2.17 10^3/uL (1.2-3.4); Absolute Monocyte Count 0.88 10^3/uL (0.1-0.8); Absolute Neutrophil Count 7.74 10^3/uL (1.2-6.7); Basophils % 0.6 %; Eosinophils % 1.3 %; HCT 43.8 % (40.0-50.0); HGB 14.7 g/dL (13.5-17.5); Immature Grans % 0.3 %; Lymphocytes % 19.7 %; MCH 29.8 pg (27.0-33.0); MCHC 33.6 % (32.0-36.0); MCV 89 fL (80-95); MPV 8.4 fL (8.0-11.0); Neutrophils % 70.1 %; Platelet Count 283 10^3/uL (130-400); RBC 4.93 10^6/uL (4.36-5.78); RDW-SD 45.1 fL; WBC 11.04 10^3/uL (4.4-10.8)
--- NOTE | 2024-08-11 18:51 | DI.RAD_ITS ---
Exam(s) XR CHEST 2V PA LATERAL EXAM: XR CHEST 2V PA LATERAL CLINICAL HISTORY: bleeding TECHNIQUE: 2D digital imaging was performed. Two views. COMPARISON: No exams were available for comparison FINDINGS: HEART: Normal size. Aorta: Mildly tortuous. PULMONARY VASCULATURE: Normal. MEDIASTINUM: Unremarkable. LUNGS: Clear. PLEURAL SPACE: No pleural effusion or pneumothorax. BONE:Degenerative changes in the thoracic spine. No compression fractures. SOFT TISSUES: Unremarkable. IMPRESSION: No acute abnormality. DATA REPOSITORY: RADIATION DOSE DELIVERED:
[2024-08-11 19:05] LABS: ALT 17 U/L (16-63); AST 11 U/L (15-37); Albumin 3.5 g/dL (3.4-5.0); Alkaline Phosphatase 79 U/L (46-116); Anion Gap 7.4 mmol/L (3-11); BUN 21 mg/dL (7-18); Bilirubin, Total 0.53 mg/dL (0.2-1.0); CO2 27.6 mmol/L (21.0-32.0); CREATININE 1.2 mg/dL (0.70-1.30); Chloride 105 mmol/L (98-107); Estimated GFR 71.86 (mL/min/1.73m2); Glucose 98 mg/dL (74-106); Potassium 4.6 mmol/L (3.5-5.1); Sodium 140 mmol/L (136-145); Total Protein 8.2 g/dL (6.4-8.2)
[2024-08-11 19:12] VITALS: BP 110/80; PULSE 80; RESP 20; TEMP 36.6; O2SAT 99
--- NOTE | 2024-08-11 19:23 | ED.GENADUL_ITS ---
Discharge Plan Disposition Patient Disposition: Home Condition: Stable Discharge Details Clinical Impression: Spitting up blood Primary Care Provider: Unknown,Unknown ED Provider: Jama Ma Home Meds and New Rx's Prescriptions: No Action Eliquis 5 mg tablet 5 mg PO BID lisinopril 10 mg tablet 10 mg PO DAILY metoprolol tartrate 100 mg tablet 100 mg PO DAILY metoprolol tartrate 50 mg tablet 50 mg PO DAILY Mounjaro 5 mg/0.5 mL pen injector 5 mg subcut QWEEK doxycycline hyclate 100 mg capsule 100 mg PO BID Qty: 13 0RF Discharge Instructions Additional Instructions: monitor for signs of ongoing bleeding and return with any ongoing or persistent bleeding lab work and xray within normal limits today please keep follow up appointments HPI General Date/Time Provider Initiated Documentation: 08/11/24 18:19 . Limitations to Documentation: no limitations . Information obtained by: patient . HPI Narrative: 54-year-old gentleman with past medical history of A-fib on Eliquis, morbid obesity on Mounjaro presents for evaluation of spitting up blood. He reports this evening he had a metallic taste in his mouth and spit and noticed that it was bright red blood. He reports he spent about 5 or 6 times and had persistence of this blood. He did not notice any pain or lesions in his mouth. He blew his nose because he thought this blood must be coming from nosebleed but when he blew his nose there was no blood on it. She denies any cough or shortness of breath. Denies any abdominal pain. He reports that the bleeding stopped after few minutes and has not returned Related Data Home Medications ?Medication ?Instructions ?Recorded ?Confirmed apixaban 5 mg tablet (Eliquis) 5 mg PO BID 06/07/24 08/11/24 doxycycline hyclate 100 mg capsule 100 mg PO BID #13 caps 06/07/24 08/11/24 lisinopril 10 mg tablet 10 mg PO DAILY 06/07/24 08/11/24 metoprolol tartrate 100 mg tablet 100 mg PO DAILY 06/07/24 08/11/24 metoprolol tartrate 50 mg tablet 50 mg PO DAILY 06/07/24 08/11/24 tirzepatide 5 mg/0.5 mL 5 mg subcut QWEEK 06/07/24 08/11/24 subcutaneous pen injector (Mounjaro) Previous Rx's ?Medication ?Instructions ?Recorded doxycycline hyclate 100 mg capsule 100 mg PO BID #13 caps 06/07/24 Allergies Allergy/AdvReac Type Severity Reaction Status Date / Time No Known Allergies Allergy Unverified 08/11/24 17:54 General Stated Complaint: RespSymp SYD: 3 Exam Narrative Exam Narrative: Review of Systems: All systems reviewed & are unremarkable except as noted in HPI and below obese NCAT PERRL, normal conjunctiva no intra oral lesions, no signs of bleeding normal nasal mucosa RRR Unlabored respiratory effort, CTAB Nondistended abdomen nt Course Vital Signs Vital signs: Vital Signs Temperature 36.6 C 08/11/24 17:49 Pulse 94 H 08/11/24 17:49 Respiratory Rate 15 08/11/24 17:49 Blood Pressure 109/66 08/11/24 17:49 Pulse Oximetry 97 08/11/24 17:49 Temperature 36.6 C 08/11/24 19:12 Pulse 80 08/11/24 19:12 Respiratory Rate 20 08/11/24 19:12 Respiratory Effort Normal, Non-Labored 08/11/24 18:04 Blood Pressure 110/80 08/11/24 19:12 Blood Pressure Position Sitting 08/11/24 17:49 Pulse Oximetry 99 08/11/24 19:12 Oxygen Delivery Method Room Air 08/11/24 17:49 Oxygen Flow Rate 0 08/11/24 17:49 Lab/Test Results Lab/Test Results: Laboratory Tests Range/Units 08/11/24 18:30 WBC (4.4-10.8) 10^3/uL 11.04 H RBC (4.36-5.78) 10^6/uL 4.93 Hgb (13.5-17.5) g/dL 14.7 Hct (40.0-50.0) % 43.8 MCV (80-95) fL 89 MCH (27.0-33.0) pg 29.8 MCHC (32.0-36.0) % 33.6 RDW (11.8-14.1) % 14.0 Plt Count (130-400) 10^3/uL 283 MPV (8.0-11.0) fL 8.4 Immature Gran % % 0.3 Neutrophils % % 70.1 Lymphocytes % % 19.7 Monocytes % % 8.0 Eosinophils % % 1.3 Basophils % % 0.6 Nucleated RBC % (0.0-0.3) % 0.0 Absolute Neutrophils (1.2-6.7) 10^3/uL 7.74 H Absolute Lymphocytes (1.2-3.4) 10^3/uL 2.17 Absolute Monocytes (0.1-0.8) 10^3/uL 0.88 H Absolute Eosinophils (0.0-0.7) 10^3/uL 0.14 Absolute Basophils (0.0-0.2) 10^3/uL 0.07 Sodium (136-145) mmol/L 140 Potassium (3.5-5.1) mmol/L 4.6 Chloride (98-107) mmol/L 105 Carbon Dioxide (21.0-32.0) mmol/L 27.6 Anion Gap (3-11) mmol/L 7.4 BUN (7-18) mg/dL 21 H Creatinine (0.70-1.30) mg/dL 1.2 Est GFR (CKD-EPI 2020) (mL/min/1.73m2) 71.86 Glucose (74-106) mg/dL 98 Calcium (8.5-10.1) mg/dL 9.0 Total Bilirubin (0.2-1.0) mg/dL 0.53 AST (15-37) U/L 11 L ALT (16-63) U/L 17 Alkaline Phosphatase (46-116) U/L 79 Total Protein (6.4-8.2) g/dL 8.2 Albumin (3.4-5.0) g/dL 3.5 Medical Decision Making Emergent evaluation of spitting up blood. The patient reports a very self- limited episode. It does not sound like hemoptysis or hematemesis. There is no vomiting or coughing associated with this episode. It seems that it was just on his saliva. He has no obvious intraoral area of bleeding. He is on Eliquis. Lab work was obtained. He does not have any abnormality in his hemoglobin or hematocrit. His platelet count is normal. His renal function is normal BUN at the slight upper end at 21 but I doubt any ongoing GI bleeding. Chest x-ray was obtained and this does not reveal any abnormalities as well. I recommend close monitoring of the symptoms and if they return or he has persistent or ongoing bleeding he should return for reevaluation. Otherwise follow-up with his PCP. Quality:SDOH Health Related Social Needs: No Data to Display PFSH All Active Problems Spitting up blood (Acute) Social History Smoking/Tobacco Use Status: Never Smoking risk assessment performed?: Yes Substance use type: does not use Housing: house Do you feel safe at home: Yes Do you feel safe in your relationship?: Yes
== END 2024-08-11 19:17 | disposition home or self-care (01) ==
PROVIDERS: Emergency Provider Emergency Medicine
DX: R04.2 Hemoptysis (principal); I48.91 Unspecified atrial fibrillation; E66.01 Morbid (severe) obesity due to excess calories; Z79.01 Long term (current) use of anticoagulants; Z79.899 Other long term (current) drug therapy
CPT/HCPCS: 36415; 80053; 99284; 71046; 85025

== ENCOUNTER 2024-10-29 15:36 | Outpatient (REF) | payer BC, SELFPAY ==
[2024-10-29 15:20] LABS: HCT 41.9 % (40.0-50.0); HGB 13.8 g/dL (13.5-17.5); MCH 29.3 pg (27.0-33.0); MCHC 32.9 % (32.0-36.0); MCV 89 fL (80-95); MPV 8.9 fL (8.0-11.0); Platelet Count 281 10^3/uL (130-400); RBC 4.71 10^6/uL (4.36-5.78); RDW 14.2 % (11.8-14.1); RDW-SD 46.1 fL; WBC 10.44 10^3/uL (4.4-10.8)
[2024-10-29 15:28] LABS: Anion Gap 6.6 mmol/L (3-11); BUN 23 mg/dL (7-18); CO2 29.4 mmol/L (21.0-32.0); Chloride 105 mmol/L (98-107); Estimated GFR 89.44 (mL/min/1.73m2); Glucose 86 mg/dL (74-106); Potassium 4.9 mmol/L (3.5-5.1); Sodium 141 mmol/L (136-145)
== END 2024-10-29 15:37 | disposition home or self-care (01) ==
LOC: NCHCN 15:36
PROVIDERS: Visit Provider Physician Assistant
DX: I10 Essential (primary) hypertension (principal)
CPT/HCPCS: 80048; 85027

== ENCOUNTER 2025-02-17 14:05 | Outpatient (REF) | payer BC, SELFPAY ==
[2025-02-17 17:00] LABS: COMMENT (LAB VIEW ONLY) 89.88 mg/dL; Microalb ug/mg Crea 9.9 ug/mg Cr
== END 2025-02-17 14:06 | disposition home or self-care (01) ==
LOC: NCHCN 14:05
PROVIDERS: Visit Provider Physician Assistant
DX: E11.9 Type 2 diabetes mellitus without complications (principal)
CPT/HCPCS: 82043; 82570